=== PATIENT | female | born 1990 | race African-American/Black ===

== ENCOUNTER 2024-01-03 08:46 | Emergency (ER) | payer OTHER, MEDICARE, SELFPAY ==
[2024-01-03 08:48] VITALS: BP 140/84
--- NOTE | 2024-01-03 09:42 | ED.GENMED ---
History of Present Illness
General
Chief Complaint: Musculo-Skeletal Complaint
Source: patient
Exam Limitations: none
Time Seen by Provider: 01/03/24 09:23
Nursing documentation reviewed up to this point in time: agreed with
Travel History
Have you had any contact with someone who has COVID-19?: No
Do you have any symptoms of coronavirus? Fever > 100 degrees, chills, cough, shortness of breath, sore throat, loss of taste or smell, muscle aches, or headache?: No
History of Present Illness
History of Present Illness:
Patient is a 33-year-old female who presents to the ER complaining of right foot pain. She reports she fell a couple days ago and did not have pain initially after but has had pain since yesterday. She complains of pain across the top of her foot.
She denies any swelling. She denies any calf pain or swelling. She does have MS and walks with a cane normally and reports this is her good leg and because of this she is having difficulty walking.
Past History
Past History
ED Past Medical History: NIDDM, Psychiatric (Generalized anxiety disorder, PTSD, Depression,. Schizophrenia, ) and Other (Vertigo, multiple sclerosis, probable relapsing remitting type with lesions in brain, at C7, and conus medullaris ,Chronic abd
pain, anemia, 'Lymphanoma')
ED Past Surgical History: Appendectomy and Gynecological (Fallopian tube removed)
Social History
Tobacco: Former smoker
Alcohol: None
Drug: Other (Heroin)
Personal:
Living: with family (with Mother)
Employment: Not employed
Family History
Family History: Other (uncle with MS)
Review of Systems
Review of Systems
Allergies reviewed?: Yes
All Other Systems: ROS reviewed and negative except as documented in HPI and ROS
Constitutional: Reports no symptoms; Denies fever, fatigue or chills
Respiratory: Reports no symptoms
Cardiac: Reports no symptoms
ABD/GI: Reports no symptoms
Musculoskeletal: Reports other (right foot pain )
Skin: Reports no symptoms
Neurological: Reports no symptoms
Psychiatric: Reports no symptoms
Phy Exam
General Physical Exam
General Presentation: no apparent distress
General age: appears stated age
General Skin: warm and dry
General Habitus: normal
General Mental: alert
General Hydration: appears well hydrated
Neurological Exam
Neurological Exam: alert and oriented x3
Musculoskeletal Exam
Musculoskeletal Exam: other (right lower extremity strong pulses no obvious swelling or erythema mild nonspecific tenderness across the dorsal foot no bony ankle tenderness no proximal fifth metatarsal tenderness no calf tenderness or swelling)
Skin Exam
Skin Exam: normal color and warm/dry
Psychiatric Exam
Psychiatric Exam: normal mood/affect
Course
Orders/Labs/Results
Orders:
Orders
01/03/24 08:50
CR Foot - Right Min 3 Views Urgent
Comment:
Reason For Exam: pain
01/03/24 09:40
Cast Shoe Right-Treatment ONCE
Vital Signs
Initial and Last Documented VS:
Initial Vital Signs
Temp Pulse Resp BP Pulse Ox
98.2 F 94 20 140/84 100
01/03/24 08:48 01/03/24 08:48 01/03/24 08:48 01/03/24 08:48 01/03/24 08:48
Last Documented Vital Signs
Temp Pulse Resp BP Pulse Ox
98.2 F 94 20 140/84 100
01/03/24 08:48 01/03/24 08:48 01/03/24 08:48 01/03/24 08:48 01/03/24 08:48
MDM/Problems Addressed
Differential Diagnosis Includes:
Not limited to fracture sprain /strain
MDM/Problems Addressed:
No obvious fracture possible sprain strain injury. No calf tenderness or swelling no evidence of infection.
Will DC with cast shoe with elevation ibuprofen and close outpatient follow-up with either podiatry or orthopedics.
Chronic conditions affecting care:
MS : pt walks with a cane
*Radiology
Radiology exam reviewed: radiology read reviewed
*Pulse Oximetry
Patient hypoxic: no
*Critical Care Note
Total Time (30-74mins, 75-104mins- exclusive of procedures): Not Applicable
ED Attending Note
-
Portions of this chart may have been created with voice recognition software.� Occasional wrong word or��sound alike� substitutions may have occurred due to the inherent limitations of voice recognition software.
Discharge Plan
Departure
Patient Disposition: Home (Routine Discharge)
Date of Disposition: 01/03/24
Time of Disposition: 10:15
Patient with high blood pressure during this ER visit?: Yes
Condition: Fair
Covid-19: Not Applicable
Discharge Problem:
foot pain
Instructions: Muscle and Bone Pain (DC), Ibuprofen
Prescriptions:
No Action
clonazepam 0.5 MG tablet
0.5 mg PO BID
Patient Comments:
09/03/2022: last filled 08/17/22, 60 tabs for 30 days from [facility]
zolpidem 10 MG tablet
10 mg PO HS PRN (Reason: sleep)
Patient Comments:
09/03/2022: last filled 08/17/22, 30 tabs for 30 days from [facility]
acetaminophen-codeine 300-30 mg tablet
1 tab PO BID PRN (Reason: moderate pain)
Patient Comments:
09/03/2022: last filled 09/02/22, 90 tabs for 30 days from [facility]
baclofen 20 mg tablet
20 mg PO TID
gabapentin 800 mg tablet
800 mg PO TID
mirtazapine 45 mg tablet
45 mg PO HS
perphenazine 16 mg tablet
16 mg PO HS
Kesimpta Pen 20 mg/0.4 mL pen injector
20 mg SC TH
Patient Comments:
09/03/2022: Taking weekly for 3 weeks, then monthly
meclizine 25 mg tablet
25 mg PO Q8H PRN (Reason: dizziness)
ondansetron 4 mg Tablet,Disintegrating
4 mg PO Q8H PRN (Reason: nausea/vomiting)
cholecalciferol (vitamin D3) 125 mcg (5,000 unit) capsule
125 mcg PO DAILY
duloxetine 60 mg Capsule,Delayed Release(Dr/Ec)
60 mg PO DAILY Qty: 30 0RF
Rx Instructions:
Increased dose
pregabalin 75 mg Capsule
150 mg PO TID Qty: 60 0RF
rizatriptan 10 mg Tablet,Disintegrating
10 mg PO ONCE PRN (Reason: headache) Qty: 10 0RF
prednisone 10 mg tablet
10 mg PO DIRECTED Qty: 39 0RF
Rx Instructions:
60mg for 3 days, then 40mg daily for 3 days, Then 20mg for 3 days. 10mg for 3 days.
Referrals:
Jarred Kohli DO [Active] -
Jeanne Chen DPM [Specified Professional Personl] -
Lea Algere MD [Family Provider] -
Activity Restrictions/Additional Instructions:
Wear cast shoe for support . Keep elevated as much as possible
Follow-up with either orthopedics or podiatry in the next several days for reevaluation. You may take ibuprofen every 8 hours with food for discomfort return if any worsening of symptoms
Interventions
Interventions:
*Risk Screen - Suicide Last Done: 01/03/24 08:48
*General Assessment Last Done: 01/03/24 08:48
*Neglect/Abuse Screening Last Done: 01/03/24 08:48
*Nursing Disposition Last Done: 01/03/24 10:37
ED-Musculoskeletal Assessment Last Done: 01/03/24 09:27
Discharge Date and Time
Discharge Date/Time: 01/03/24 10:37
Print Language: IRISH
== END 2024-01-03 10:37 | disposition home or self-care (01) ==
LOC: EMR 08:46
PROVIDERS: EMERGENCY PHYSICIAN Emergency Medicine; FAMILY PHYSICIAN Family Medicine
DX: M79.671 Pain in right foot (principal); W19.XXXA Unspecified fall, initial encounter; R03.0 Elevated blood-pressure reading, without diagnosis of hypertension; E11.9 Type 2 diabetes mellitus without complications; F41.1 Generalized anxiety disorder; F43.10 Post-traumatic stress disorder, unspecified; R26.89 Other abnormalities of gait and mobility; R10.9 Unspecified abdominal pain; G35 Multiple sclerosis; F32.A Depression, unspecified; F20.9 Schizophrenia, unspecified; D64.9 Anemia, unspecified; G89.29 Other chronic pain; Z87.891 Personal history of nicotine dependence
CPT/HCPCS: 99283; 73630

== ENCOUNTER 2024-08-15 19:03 | Inpatient (IN) | payer OTHER, SELFPAY ==
[2024-08-15 13:08] VITALS: BP 200/94
--- NOTE | 2024-08-15 13:11 | ED.GENMED ---
ED Provider Triage
<Sloan Ford PA-C - Last Filed: 08/15/24 13:12>
-
Patient seen by provider in Triage?: Seen in Triage
34-year-old female with history of MS presents with onset of dizziness and pina vision and cloudy vision since yesterday she also notes shooting pain down her leg. She received her last MS treatment a week ago.
Seen briefly in triage with stable vital signs. Workup initiated with labs EKG CT head ordered.
Patient seen by provider at triage. Will benefit from further evaluation
History of Present Illness
<Sloan Ford PA-C - Last Filed: 08/15/24 13:12>
General
Chief Complaint: Dizziness
Time Seen by Provider: 08/15/24 16:33
<Mir José DO - Last Filed: 08/15/24 18:23>
General
Source: patient
Exam Limitations: none
Nursing documentation reviewed up to this point in time: agreed with
History of Present Illness
History of Present Illness:
34-year-old female history of MS, followed by an MS specialist at [place] last treatment was a week ago, had a busy day yesterday with the holidays, developed some visual loss seeing pina no visual issues with her MS previously, she has some pain
in her back, not getting much relief from baclofen
Past History
<Sloan Ford PA-C - Last Filed: 08/15/24 13:12>
Past History
ED Past Medical History: NIDDM, Psychiatric (Generalized anxiety disorder, PTSD, Depression,. Schizophrenia, ) and Other (Vertigo, multiple sclerosis, probable relapsing remitting type with lesions in brain, at C7, and conus medullaris ,Chronic abd
pain, anemia, 'Lymphanoma')
ED Past Surgical History: Appendectomy and Gynecological (Fallopian tube removed)
Social History
Tobacco: Former smoker
Alcohol: None
Drug: Other (Heroin)
Personal:
Living: with family (with Mother)
Employment: Not employed
Family History
Family History: Other (uncle with MS)
Review of Systems
<Mir José DO - Last Filed: 08/15/24 18:23>
Review of Systems
All Other Systems: Not applicable
Constitutional: Denies fever
Respiratory: Reports no symptoms
Cardiac: Reports no symptoms
ABD/GI: Reports no symptoms
Musculoskeletal: Reports muscle stiffness
Neurological: Reports weakness and other (Visual changes); Denies dizzy or headache
Phy Exam
<Mir José DO - Last Filed: 08/15/24 18:23>
Physical Exam
Physical Exam:
Physical Exam
General: no apparent distress, not acutely ill
Neck: No jaundice
Heart: s1/s2 regular rate and rhythm, no murmur. equal radial pulses.
Lungs: no acute respiratory distress. clear bilaterally
Neuro: alert and oriented. no focal neurological deficits
Skin: no rash
Psychiatric:cooperative
Extremities: no edema.
Course
<Sloan Ford PA-C - Last Filed: 08/15/24 13:12>
Orders/Labs/Results
Orders:
Orders
08/15/24 13:10
CT Head W/o Iv Contrast Urgent
Comment:
Reason For Exam: dizziness, vision change
Test Result ONCE
08/15/24 13:11
Electrocardiogram (*1) Urgent
Reason for Study: Vertigo / Dizzy
EKG- Treatment ONCE
08/15/24 16:16
C-Reactive Protein Urgent
Comment: ADD ON
Complete Blood Count/With Diff Urgent
Comprehensive Metabolic Panel Urgent
Erythrocyte Sed Rate Urgent
Comment: ADD ON
HCG, Serum Qualitative Screen Urgent
Urinalysis Reflex To Culture Urgent
Date Specimen was Collected: 08/15/24
Time Specimen was Collected: 16:09
08/15/24 17:03
Add On- LAB Urgent
Tests Added?: esr/crp
08/15/24 17:16
Visual Acuity- Treatment ONCE
08/15/24 17:29
MethylPREDNISolone. [Solu-Medrol] 1,000 mg 0.9% Sodium Chloride 250 ml [Nss] 250 ml IV NOW
Abnormal Lab Results
08/15/24
16:16
RBC 4.19 L 10^6/uL
(4.20-5.40)
Hgb 11.0 L g/dL
(12.0-16.0)
Hct 35.2 L %
(37.0-47.0)
MCH 26.3 L pg
(27.0-31.0)
MCHC 31.3 L g/dL
(33.0-37.0)
RDW 15.6 H %
(11.5-14.5)
MPV 11.7 H fL
(7.4-10.4)
Absolute Neuts (auto) 6.9 H 10^3/uL
(1.4-6.5)
Lymphocytes % 20.2 L %
(20.5-51.1)
ESR 37 H mm/hour
(0-20)
Glucose 102 H mg/dl
(70-99)
C-Reactive Protein 30.50 H mg/L
(0.0-10.00)
08/15/24 16:16
08/15/24 16:16
Vital Signs
Initial and Last Documented VS:
Initial Vital Signs
Temp Pulse Resp BP Pulse Ox
98.1 F 72 18 200/94 100
08/15/24 13:08 08/15/24 13:08 08/15/24 13:08 08/15/24 13:08 08/15/24 13:08
Last Documented Vital Signs
Temp Pulse Resp BP Pulse Ox
98.1 F 81 20 120/82 100
08/15/24 13:08 08/15/24 16:23 08/15/24 16:23 08/15/24 16:23 08/15/24 16:23
<Mir José, DO - Last Filed: 08/15/24 18:23>
Orders/Labs/Results
Orders:
Orders
08/15/24 13:10
CT Head W/o Iv Contrast Urgent
Comment:
Reason For Exam: dizziness, vision change
Test Result ONCE
08/15/24 13:11
Electrocardiogram (*1) Urgent
Reason for Study: Vertigo / Dizzy
EKG- Treatment ONCE
08/15/24 16:16
C-Reactive Protein Urgent
Comment: ADD ON
Complete Blood Count/With Diff Urgent
Comprehensive Metabolic Panel Urgent
Erythrocyte Sed Rate Urgent
Comment: ADD ON
HCG, Serum Qualitative Screen Urgent
Urinalysis Reflex To Culture Urgent
Date Specimen was Collected: 08/15/24
Time Specimen was Collected: 16:09
08/15/24 17:03
Add On- LAB Urgent
Tests Added?: esr/crp
08/15/24 17:16
Visual Acuity- Treatment ONCE
08/15/24 17:29
MethylPREDNISolone. [Solu-Medrol] 1,000 mg 0.9% Sodium Chloride 250 ml [Nss] 250 ml IV NOW
Abnormal Lab Results
08/15/24
16:16
RBC 4.19 L 10^6/uL
(4.20-5.40)
Hgb 11.0 L g/dL
(12.0-16.0)
Hct 35.2 L %
(37.0-47.0)
MCH 26.3 L pg
(27.0-31.0)
MCHC 31.3 L g/dL
(33.0-37.0)
RDW 15.6 H %
(11.5-14.5)
MPV 11.7 H fL
(7.4-10.4)
Absolute Neuts (auto) 6.9 H 10^3/uL
(1.4-6.5)
Lymphocytes % 20.2 L %
(20.5-51.1)
ESR 37 H mm/hour
(0-20)
Glucose 102 H mg/dl
(70-99)
C-Reactive Protein 30.50 H mg/L
(0.0-10.00)
08/15/24 16:16
08/15/24 16:16
Vital Signs
Initial and Last Documented VS:
Initial Vital Signs
Temp Pulse Resp BP Pulse Ox
98.1 F 72 18 200/94 100
08/15/24 13:08 08/15/24 13:08 08/15/24 13:08 08/15/24 13:08 08/15/24 13:08
Last Documented Vital Signs
Temp Pulse Resp BP Pulse Ox
98.1 F 81 20 120/82 100
08/15/24 13:08 08/15/24 16:23 08/15/24 16:23 08/15/24 16:23 08/15/24 16:23
Earllt;Mir José, DO - Last Filed: 08/15/24 18:23>
MDM/Problems Addressed
Differential Diagnosis Includes:
MS flare or optic neuritis atypical migraine malingering psychosomatic
MDM/Problems Addressed:
Visual changes
Chronic conditions affecting care: Neurological disorder and Psychiatric illness
Acute Exacerbation and/or Progression of Chronic Illness: Neurological disorder and Psychiatric illness
<Mir José DO - Last Filed: 08/15/24 18:23>
*Radiology
Radiology exam reviewed: radiology read reviewed
*Pulse Oximetry
Patient hypoxic: no
*Crusher Operator Interpretation
Rate: normal
Interpretation: normal
Heart Rate: 78
Rhythm: sinus
*Critical Care Note
Total Time (30-74mins, 75-104mins- exclusive of procedures): Not Applicable
<Mir José DO - Last Filed: 08/15/24 18:23>
Update Note
Update Note:
Update up-to-date reviewed, unclear if this represents optic neuritis flare? Or others? does have MS also has mental illness, at this point I think it is best to bring her in the hospital consideration for specialty consultation
Reviewed with neurology and ophthalmology will ophthalmology will see her in the ER
ED Attending Note
<Sloan Ford PA-C - Last Filed: 08/15/24 13:12>
-
Portions of this chart may have been created with voice recognition software.� Occasional wrong word or��sound alike� substitutions may have occurred due to the inherent limitations of voice recognition software.
Discharge Plan
Departure
Admit to: Med/Surg
Presentation/result/management discussed w/ accepting MD/DO: Hospitalist
Patient with high blood pressure during this ER visit?: Yes
Condition: Fair
Discharge Problem:
Multiple sclerosis
Prescriptions:
No Action
clonazepam 0.5 MG tablet
0.5 mg PO TID
Patient Comments:
09/03/2022: last filled 08/17/22, 60 tabs for 30 days from [facility]
zolpidem 10 MG tablet
10 mg PO HS
Patient Comments:
08/15/24: last filled 08/15/24 for 30 tablets over 30 days
mirtazapine 45 mg tablet
45 mg PO HS
perphenazine 16 mg tablet
16 mg PO HS
Kesimpta Pen 20 mg/0.4 mL pen injector
20 mg SC QMONTH
meclizine 25 mg tablet
25 mg PO [id number] PRN (Reason: dizziness)
ondansetron 4 mg Tablet,Disintegrating
4 mg PO Q8HPRN PRN (Reason: nausea/vomiting)
cholecalciferol (vitamin D3) 125 mcg (5,000 unit) capsule
125 mcg PO DAILY
prazosin 5 mg Capsule
5 mg PO HS
hydroxyzine pamoate 25 mg Capsule
25 mg PO BIDPRN PRN (Reason: anxiety)
duloxetine 30 mg Capsule,Delayed Release(Dr/Ec)
30 mg PO DAILY
tizanidine 2 mg Capsule
2 mg PO Q8HPRN PRN (Reason: muscle spasms)
rizatriptan 10 mg tablet,disintegrating
10 mg PO DAILYPRN PRN (Reason: headache)
pregabalin 75 mg capsule
75 mg PO TID
Patient Comments:
08/15/24: last filled 05/22/24 for 90 tabs over 30 days
Referrals:
Lea Alegre MD [Family Provider] -
Interventions
Interventions:
*Risk Screen - Suicide Last Done: 08/15/24 13:08
*General Assessment Last Done: 08/15/24 13:08
*Neglect/Abuse Screening Last Done: 08/15/24 13:08
*ED COVID-19 Vaccine History Last Done: 08/15/24 13:08
ED- Neurological Assessment Last Done: 08/15/24 16:25
ED- Cardiac Assessment Last Done: 08/15/24 16:25
ED Swallowing Screen Last Done: 08/15/24 17:41
Discharge Date and Time
Print Language: FRISIAN
[2024-08-15 16:10] VITALS: BMI 46.6
[2024-08-15 16:21] VITALS: BP 120/82
[2024-08-15 16:23] VITALS: BP 120/82
[2024-08-15 16:27] LABS: % Basophils 0.6 % (0-2); % Eosinophils 1.8 % (0-6); % Immature Granulocytes 0.3 % (0-0.5); % Lymphocytes 20.2 % (20.5-51.1); % Monocytes 5.7 % (1.7-9.3); % Neutrophils 71.4 % (42.2-75.2); Absolute Basophils 0.1 10^3/uL (0-0.2); Absolute Eosinophils 0.2 10^3/uL (0-0.7); Absolute Monocytes 0.6 10^3/uL (0.1-0.6); Absolute Neutrophils 6.9 10^3/uL (1.4-6.5); Hematocrit 35.2 % (37.0-47.0); Mean Corp Hgb Conc. 31.3 g/dL (33.0-37.0); Mean Corpuscular Hgb 26.3 pg (27.0-31.0); Mean Platelet Volume 11.7 fL (7.4-10.4); Nucleated Red Blood Cells % 0 %; Platelet Count 358 10^3/uL (130-400); Red Blood Cell Count 4.19 10^6/uL (4.20-5.40); Red Cell Dist. Width 15.6 % (11.5-14.5); White Blood Cell Count 9.7 10^3/uL (4.8-10.8)
[2024-08-15 16:38] LABS: Urine Albumin Negative (Neg - Trace); Urine Bilirubin Negative (Negative); Urine Character Very Cloudy (Clear); Urine Color Yellow; Urine Glucose Negative (Negative); Urine Ketone Negative (Negative); Urine Leukocyte Negative (Negative); Urine Nitrite Negative (Negative); Urine Occult Blood Negative (Negative); Urine Urobilinogen Negative (Neg - 1+)
[2024-08-15 16:43] LABS: HCG, Serum Qualitative Screen Negative
[2024-08-15 16:46] LABS: ALT (SGPT) 27 U/L (0-35); AST (SGOT) 33 U/L (14-36); Albumin 4.5 g/dl (3.5-5.0); Alkaline Phosphatase 112 U/L (38-126); Blood Urea Nitrogen 10 mg/dl (7-17); Carbon Dioxide 25 mmol/L (22-30); Chloride 104 mmol/L (98-107); Estimated Creatinine Clearance > 125 ml/min; Glucose 102 mg/dl (70-99); Potassium 4.2 mmol/L (3.5-5.1); Sodium 138 mmol/L (135-145); Total Bilirubin 0.2 mg/dl (0.2-1.3); Total Protein 7.4 g/dl (6.3-8.2); eGFR > 60.00
[2024-08-15 17:21] LABS: Erythrocyte Sed Rate 37 mm/hour (0-20)
[2024-08-15] MEDS: SOLU-MEDROL 258 MG IV (18:04)
--- NOTE | 2024-08-15 18:21 | HPS.HSE ---
Family Physician
-
Family Physician: Lea Alegre
Chief Complaint
-
blurry vision
History of Present Illness
34-year-old female with history of MS, chronic pain, posttraumatic stress disorder presents with onset of dizziness and pina vision and cloudy vision since yesterday. stated its feels like the room is spinning. patient stated worsening of her
chronic back pain shooting to her bilateral lower extremities. Patient stated some headache. Patient denied any fever, chills, runny nose, congestion, cough. Patient denied chest pain or short of breath. Patient denied abdominal pain, nausea,
vomiting or diarrhea. Patient denied dysuria,hematuria.
Patient received a dose of Solu-Medrol in ER. Admitting for further management
Medical History
Past Medical History
Past Medical History: Reports Other
Additional Past Medical History:
Multiple sclerosis
Lymphedema
Posttraumatic stress stress disorder
Depression
Type anxiety
Past Surgical History: Reports Other
Additional Past Surgical History:
Appendectomy
Fallopian tube removed
Social History
Tobacco: Vaping (Daily)
Alcohol: None
Drug: None
Family History
Family History: Not pertinent
Allergies / Home Medications
Allergies reflects when Allergies were last updated in [facility].
Home Medications with original date entered in [facility]
Allergy/Medication List:
Allergies
Allergy/AdvReac Type Severity Reaction Status Date / Time
No Known Allergies Allergy Verified 08/15/24 13:12
Home Medications
clonazepam 0.5 mg tablet 0.5 mg PO TID Mental Health/Anxiety 10/08/20
zolpidem 10 mg tablet 10 mg PO HS sleep 10/08/20
cholecalciferol (vitamin D3) 125 mcg (5,000 unit) capsule 125 mcg PO DAILY Supplement 09/03/22
meclizine 25 mg tablet 25 mg PO [id number] PRN dizziness 09/03/22
mirtazapine 45 mg tablet 45 mg PO HS Mental Health/Anxiety 09/03/22
ofatumumab 20 mg/0.4 mL subcutaneous pen injector (Kesimpta Pen) 20 mg SC QMONTH Cancer 09/03/22
ondansetron 4 mg disintegrating tablet 4 mg PO Q8HPRN PRN nausea/vomiting 09/03/22
perphenazine 16 mg tablet 16 mg PO HS Sleep 09/03/22
duloxetine 30 mg capsule,delayed release 30 mg PO DAILY 08/15/24
hydroxyzine pamoate 25 mg capsule 25 mg PO BIDPRN PRN anxiety 08/15/24
prazosin 5 mg capsule 5 mg PO HS 08/15/24
pregabalin 75 mg capsule 75 mg PO TID Pain 08/15/24
rizatriptan 10 mg disintegrating tablet 10 mg PO DAILYPRN PRN headache 08/15/24
tizanidine 2 mg capsule 2 mg PO Q8HPRN PRN muscle spasms 08/15/24
Review of Systems
-
Constitutional: Reports No Symptoms
EENT: Reports Other (Blurry or cloudy vision)
Respiratory: Reports No Symptoms
Cardiac: Reports No Symptoms
Abdomen/GI: Reports No Symptoms
: Reports No Symptoms
Musculoskeletal: Reports No Symptoms
Skin: Reports No Symptoms
Neurological: Reports Dizzy and Headache
Endocrine: Reports No Symptoms
Hematologic/Lymphatic: Reports No Symptoms
Psych: Reports No Symptoms
Physical Exam
Vital Signs
Vital Signs
Temp Pulse Resp BP Pulse Ox
98.1 F 81 20 120/82 100
08/15/24 13:08 08/15/24 16:23 08/15/24 16:23 08/15/24 16:23 08/15/24 16:23
Physical Exam
General: Well Developed, Well Nourished and No Apparent Distress
HEENT: NormoCephalic, Moist mucous membranes and Atraumatic
Respiratory: Clear
Cardiac: S1/S2 and Regular Rhythm; No Murmur or Rub
GI: Soft, Non Tender, Non Distended and Normal Bowel Sounds; No Organomegaly
Rectal: Deferred by Provider
Musculoskeletal: No Clubbing, No Cyanosis and No Edema
Skin: No Rash
Neuro: AO x 3 and Nonfocal/grossly intact
Psych: Calm
Laboratory Results
-
08/15/24 16:16
08/15/24 16:16
Laboratory Results
Total Bilirubin 0.2 mg/dl (0.2-1.3) 08/15/24 16:16
AST 33 U/L (14-36) 08/15/24 16:16
ALT 27 U/L (0-35) 08/15/24 16:16
Alkaline Phosphatase 112 U/L (38-126) 08/15/24 16:16
Data Reviewed
-
CT Scan: Report Reviewed by me
Lab Data: Labs Reviewed by me
Impression/Plan
-
# Blurry vision, dizziness/vertigo likely optical neuritis
# History of MS
-Head CT with no acute finding
-IV Solu-Medrol continued
-Ophthalmology and neurology consulted
# Anemia of chronic disease
-Hemoglobin stable at 11.0
-No active bleeding
-Continue to monitor
#PTSD
#Anxiety disorder/depression
-Clonazepam, duloxetine, hydroxyzine pamoate, Remeron, prazosin continued
# Chronic back pain radiating to her lower extremities
-Pregabalin, tizanidine continued
-tramadol as needed for pain
Morbid obesity due to excess calories
Full code
scds
--- NOTE | 2024-08-15 18:47 | W.PN.UPDATE ---
Update Note
Progress Note Update
This is an addendum to the H&P written by Peace Walker on 08/15/2024. Patient seen and examined independently with CASCADE OPERATOR.
34-year-old female past medical history of multiple sclerosis on Kesimpa infusion at [facility] for past year, chronic pain, PTSD, anxiety, depression, lymphedema, presenting with dizziness, vertigo, headache and neck pain, bilateral blurry vision,
bilateral back pain shooting down her legs, starting yesterday.
Patient also complaining of new bruising on her legs. She does have lymphedema.
CRP elevated at 30. CT head shows no acute abnormality.
Concern for optic neuritis and multiple sclerosis flare. Ophthalmology consulted and to evaluate patient soon. Neurology consulted. 1000 mg methylprednisolone given, continue daily. Back pain shooting down the legs is chronic and was thought to
be secondary to MS. She had recent MRI 2 months ago but does not know the result.
Tramadol as needed for back pain.
[2024-08-15 19:17] VITALS: BP 128/74
[2024-08-15] MEDS: LIORESAL 10 MG PO (19:18)
[2024-08-15] MEDS: DILAUDID 1 MG IV (19:18)
[2024-08-15] MEDS: MYDRIACYL 1 DROP OPHTH (19:47)
[2024-08-15 20:57] VITALS: BMI 45.2
[2024-08-15 20:58] VITALS: BP 168/95
[2024-08-15] MEDS: TRILAFON 16 MG PO (22:51)
[2024-08-15] MEDS: KLONOPIN 0.5 MG PO (22:51)
[2024-08-15] MEDS: MINIPRESS 5 MG PO (22:51)
[2024-08-15] MEDS: REMERON 45 MG PO (22:51)
[2024-08-15] MEDS: LYRICA 75 MG PO (22:54)
[2024-08-15] MEDS: AMBIEN 10 MG PO (22:55)
[2024-08-15 23:00] VITALS: BP 152/86
[2024-08-15] MEDS: DILAUDID 0.5 MG IV (23:09)
[2024-08-16 07:30] VITALS: BP 110/61
--- NOTE | 2024-08-16 09:01 | W.PN.HOSP.TC ---
Today's Communication/Plan
-
Patient to undergo MRI today. Will await results. Continue supportive therapy.
Assessment / Plan
Assessment / Plan
Assessment:
34 year old female with a past medical history of multiple sclerosis (on Kesimpta infusion at [facility] for the past year), chronic pain, PTSD, anxiety and depression presented with dizziness, weakness, vertigo, headache, bilateral blurry vision,
and bilateral back pain which all started yesterday. Currently she says that she is feeling better and that her vision is improving.
#Possible Optic Neuritis secondary to Multiple Sclerosis Flare
-Head CT showed: No acute intracranial abnormality
-IV Solu-Medrol continued
-On Kesimpta therapy from [place]
-Ophthalmology and neurology consulted, input appreciated
-Ordered Brain MRI w/ and w/o IV contrast with special attention to the orbit. Awaiting results
-Inflammatory markers increased: CRP 30.50, ESR 37
#Chronic Anemia
-Hemoglobin stable at 11.0
-No current active bleed
-Continue to monitor
#PTSD/Anxiety disorder/depression
-Continue home medications of Clonazepam, duloxetine, hydroxyzine pamoate, Remeron, prazosin
#Dizziness
-Meclinizine PRN
# Chronic back pain radiating to her lower extremities
-Pregabalin, tizanidine continued
-tramadol as needed for pain
Morbid obesity due to excess calories
Full code
DVT Prophylaxis: SCDS
Anticipated Discharge: Within 24 hours
Subjective/Interval History
-
Date of Service: August 16, 2024
Patient was very somnolent and unable to provide much history. She was very tired but said that she did notice some improvement in her vision as compared to before.
Objective Data
-
Vital Signs:
Vital Signs
Temp Pulse Resp BP Pulse Ox
98.0 F 68 20 110/61 97
08/16/24 07:30 08/16/24 07:30 08/16/24 07:30 08/16/24 07:30 08/16/24 07:30
I&O
08/15/24 08/16/24 08/17/24
06:59 06:59 06:59
Intake Total 960 / 960
Balance 960 / 960
Review of Systems
-
History Source: Patient
Constitutional: Reports Fatigue and Weakness
EENT: Reports Blurry Vision and Decreased Vision
Respiratory: Denies Cough, Trouble Breathing or Wheezing
Cardiac: Denies Chest Pain, Diaphoresis or Palpitations
Abdomen/GI: Denies Abdominal Pain, Nausea or Vomiting
Musculoskeletal: Denies Muscle Weakness
Skin: Reports No Symptoms
Neuro: Reports Dizzy and Headache
Hematologic / Lymphatic: Reports No Symptoms
Allergy / Immunology: Reports No Symptoms
Physical Exam
-
General: Well Developed, Well Nourished and No Apparent Distress
HEENT: Normocephalic, Atraumatic and Moist Mucous Membranes
Respiratory: Clear to Auscultation and Non Labored Respirations
Cardiac: Regular Rhythm and S1/S2
GI: Soft, Nontender and Nondistended
Musculoskeletal: No Clubbing and No Cyanosis
Skin: Warm
Neuro: Awake, Alert, Oriented and AO x 3
Psych: Calm
Data Reviewed
-
CT Scan: Report Reviewed by me, Discussed with Physician, Discussed with Nurse and Discussed with Patient
Labs: Labs Reviewed by me, Discussed with Physician, Discussed with Nurse and Discussed with Patient
--- NOTE | 2024-08-16 09:01 | CON.NEURO4 ---
Addendum entered and electronically signed by Fantasma Sadler MD 08/16/24 11:43:
Studies reviewed.
I have personally examined the patient. I reviewed and agree with the SPOOL SALVAGER's Note.
My addenda:
Lethargic with eye closure after 3 seconds of interaction, interactive. No acute distress.
Speech mostly intact with some slurring at the end of words.
Funduscopic examination unremarkable bilaterally
Follows 2-step requests w/ difficulty. No tremor.
Extra-ocular movements grossly intact.
Facial movements full and symmetric. Hearing intact to normal conversational volume.
Normal UE movements bilaterally.
Neck: full ROM.
Chest: no dyspnea
Heart: no JVD
Ext: (-) Clubbing, (-) Cyanosis, (-) Edema
IMPRESSIONS/RECOMMENDATIONS:
Abrupt onset of visual change. Appreciate ophthalmologic evaluation which failed to demonstrate clear evidence of optic neuritis.
My review and the official review of the MRI of brain performed without contrast due to the patient's intolerance to the test, fails to demonstrate obvious optic neuritis.
The possibility of a toxic metabolic encephalopathy producing symptoms is most likely at this time
Would not continue initially suggested methylprednisolone as there is no evidence of an enhancing lesion either in the optic nerves or intraparenchymally
Patient will need replacement of prior Ofatumumab due to significant side effects
Check blood work for potential metabolic abnormalities producing symptoms as well as urinalysis
Obtain records
D/W patient
All questions answered.
Will continue to follow as needed.
Original Note:
Consultation - Neurology 4
-
CONSULTING PHYSICIAN: Dr. Fantasma Sadler
REFERRING PHYSICIAN: ZULEYMA Griffiths
DICTATED BY: ZULEYMA Lance
DATE/TIME OF REQUEST: 08/15/2024
DATE/TIME OF CONSULTATION: 08/16/2024
Reason for Consultation: vision changes, hx of MS
History of Present Illness:
This is a 37 year old right handed female with a past medical history of MS diagnosis 2020, chronic pain, posttraumatic stress disorder, anxiety, depression and vertigo who has presented to the hospital with acute onset of vision changes
08/14/2024. She reports she started to notice visual deficits about 6 pm. She does admit to significant fatigue. She was up all night [place] ever preparing for the day. She described her vision as pina and was so poor she was having difficulty
making out faces. She denied any double vision. She denied any additional flashing lights or floaters. She denied any eye pain. She denied any associated headache. She has not had vision issues in the past. She did follow up with [facility] this
past summer per recommendation of her Neurologist Dr. Boone, who she sees for MS. She has been taking Kesimpta. She denies any adverse side effects or missed doses. She has chronic back pain and follows up with pain management from [facility] at the
[place], and had a recent injection and is due back for follow-up appointment. She denies any changes in gait, new weakness or trouble with coordination. She denied any speech changes. She denies any new numbness or tingling.
She does have a history of migraines, but has not had a recurrence in sometime.
HPI was obtained from patient though limited d/t patients fatigue, falling asleep between questioning and review of the EMR.
Of note she was seen by our practice as an inpatient in 2020 and 2022
Past Medical History: Multiple sclerosis, chronic pain, post-traumatic stress disorder, anxiety, depression
Surgical History: Appendectomy, fallopian tube removal
Family History: Patient's uncle with history of MS as well as 3 other cousins.
Social History: She currently stays at home with her children. She does not use any illicit drugs. She does vape. She denies any alcohol use.
Allergies: no known drug allergies
Home Medications: see below
Review of Symptoms:
Patient denies any fever, headache, chest pain, shortness of breath, GI or symptoms.
Vital Signs: see below
Physical Exam:
The patient is afebrile, heart sounds S1 and S2 regular no dyspnea
Neurologic Examination:
The patient is awake, alert and oriented x 3, falls asleep between questioning. She is able to follow commands and answer questions appropriately. There is no aphasia or dysarthria. On cranial nerve assessment, pupils are 3 mm bilateral, round and
reactive to light and accommodation. Visual linares are full. Extraocular movements are intact. Facial sensations are intact and bilaterally symmetrical, there is no facial asymmetry. Hearing is intact bilaterally to normal conversation volume.
Tongue palate and uvula are midline. Sternocleidomastoid strengths are full bilaterally. Motor strengths are 5/5 bilateral upper and lower extremities on medical research [place] scale. There is no drift or involuntary movement noted. Deep tendon
reflexes are trace bilateral upper and lower extremities and Babinski is absent bilaterally. Sensations of pain, touch, temperature and vibration are intact and bilaterally symmetrical. There was no extinction noted on double simultaneous
stimulation. Coordination is intact by finger to nose bilaterally.
Lab Results: see below
Neuro Imaging: CT head (08/16/2024)
MRI brain-pending
Impression:
ROBINSON OLSEN is a 34 year old F With a history of multiple sclerosis who has presented to the hospital with Visual changes.
Differentials for the patient's presentation include:
1. Optic neuritis, new MS lesion
2. excessive fatigue
Recommendations:
-MRI of the brain with and without contrast-Pending report
-If new enhancing lesion noted on MRI brain will require imaging of cervical and thoracic spine
-Continue High-dose steroids until MRI results indicate no active lesions
-Appreciate ophthalmology consultation, follow-up with [facility]
-Continue Kesimpta
-obtain records from Dr. Aguirre office at [place]
-continue tizanidine and pregabalin
-Counseled on vaping
-Add on urine drug screen
-add in Vitamin D
-DVT prophylaxis
-Rest of medical management per primary care team
Discussed patient care with Patient, hospitalist, and neurologist Dr. Shafer.
Medication and Allergies
Home Medications
Home Medications
�Medication �Instructions �Recorded
clonazepam 0.5 mg tablet 0.5 mg PO TID Mental Health/Anxiety 10/08/20
zolpidem 10 mg tablet 10 mg PO HS sleep 10/08/20
cholecalciferol (vitamin D3) 125 125 mcg PO DAILY Supplement 09/03/22
mcg (5,000 unit) capsule
meclizine 25 mg tablet 25 mg PO [id number] PRN dizziness 09/03/22
mirtazapine 45 mg tablet 45 mg PO HS Mental Health/Anxiety 09/03/22
ofatumumab 20 mg/0.4 mL 20 mg SC QMONTH Cancer 09/03/22
subcutaneous pen injector
(Kesimpta Pen)
ondansetron 4 mg disintegrating 4 mg PO Q8HPRN PRN nausea/vomiting 09/03/22
tablet
perphenazine 16 mg tablet 16 mg PO HS Sleep 09/03/22
duloxetine 30 mg capsule,delayed 30 mg PO DAILY 08/15/24
release
hydroxyzine pamoate 25 mg capsule 25 mg PO BIDPRN PRN anxiety 08/15/24
prazosin 5 mg capsule 5 mg PO HS 08/15/24
pregabalin 75 mg capsule 75 mg PO TID Pain 08/15/24
rizatriptan 10 mg disintegrating 10 mg PO DAILYPRN PRN headache 08/15/24
tablet
tizanidine 2 mg capsule 2 mg PO Q8HPRN PRN muscle spasms 08/15/24
Allergies
Allergies
Allergy/AdvReac Type Severity Reaction Status Date / Time
No Known Allergies Allergy Verified 08/15/24 13:12
Vital Signs / Labs
-
Vital Signs and Labs:
Temp Pulse Resp BP Pulse Ox
98.0 F 68 20 110/61 97
08/16/24 07:30 08/16/24 07:30 08/16/24 07:30 08/16/24 07:30 08/16/24 07:30
08/15/24 16:16
08/15/24 16:16
08/15/24
16:16
RBC 4.19 L
Hgb 11.0 L
Hct 35.2 L
MCH 26.3 L
MCHC 31.3 L
RDW 15.6 H
MPV 11.7 H
Absolute Neuts (auto) 6.9 H
Lymphocytes % 20.2 L
ESR 37 H
Glucose 102 H
C-Reactive Protein 30.50 H
[2024-08-16] MEDS: CYMBALTA DELAYED RELEASE 30 MG PO (10:16)
[2024-08-16] MEDS: LYRICA 75 MG PO ×2 (10:17→16:48)
[2024-08-16] MEDS: KLONOPIN 0.5 MG PO ×2 (10:17→16:47)
--- NOTE | 2024-08-16 12:02 | CM ---
Addendum entered by Zuleyma Marcano 08/16/24 12:04:
CM received consult for Advance Directive-provided to patient/mother.
Original Note:
CM reviewed chart, patient seen bedside with mother, initial assessment completed. Patient resides with her spouse and son in a multiple story home, has a cane if needed. Patient denies VN or SNF, confirms PCP Lea Alegre, pharmacy [facility]
[place], confirmed prescription coverage. Patient denies insecurities at home. CM will continue to follow for all discharge planning needs.
Plan; home no needs likely.
[2024-08-16] MEDS: ULTRAM 50 MG PO (12:04)
[2024-08-16 12:18] LABS: Amphetamines Negative (Negative); Barbiturates Negative (Negative); Benzodiazepines Negative (Negative); Buprenorphine Negative (Negative); Cocaine Negative (Negative); Marijuana Positive (Negative); Methadone Negative (Negative); Methamphetamines Negative (Negative); Opiates Negative (Negative); Phencyclidine Negative (Negative); Tricyclic Antidepressants Negative (Negative)
[2024-08-16 12:26] LABS: Free T4 1.19 ng/dl (0.78-2.19); Vitamin D, 25-OH*** 22.5 ng/mL (30-80)
[2024-08-16 12:39] LABS: TSH 1.08 uIU/ml (0.47-4.68)
[2024-08-16 12:43] LABS: Ferritin 11.6 ng/ml (6.24-137)
[2024-08-16 13:14] LABS: Folate 5.9 ng/ml (2.76-20); Vitamin B12 795 pg/ml (239-931)
[2024-08-16 14:20] LABS: Alcohol None Detected
--- NOTE | 2024-08-16 14:49 | W.DCSUMMARY ---
Documented by User: Daquan Suazo MD, Resident 08/16/24 17:05
Discharge Summary
Discharge Data
Date of Admission: 08/15/24
Date of Discharge: 08/16/24
-
Pending Results: No
Hospital Course
Discharging Physician : Dr. Nahid cMleod, Dr. Daquan Suazo
Disposition : Home
Primary care physician : Dr. Lea Alegre
Principal Discharge diagnosis : Abrupt Visual Changes secondary to Multiple Sclerosis
Chronic Discharge diagnosis : Multiple Sclerosis, Chronic Anemia, PTSD, Anxiety, Depression, Dizziness, Chronic Back Pain, Morbid Obesity
Hospital Course :
34-year-old female with a history of multiple sclerosis, chronic back pain, anxiety, depression, PTSD, morbid obesity presents to [facility] on 08/15/2024 with recent history of dizziness blurry vision and feeling like the room is spinning.
She denies any fever, chills, chest pains, shortness of breath, abdominal pain, nausea, vomiting, or diarrhea. Patient's head CT showed no acute findings patient was started on IV steroids. Patient was admitted to the hospital with with concerns
that she was dealing with optic neuritis. Patient was evaluated by both ophthalmology and neurology. She was found to have no definitive signs of optic neuritis as she had no pain on eye movements and her vision was not profoundly decreased. Her
blood levels were checked for any toxic metabolites or electrolyte abnormalities but only thing that was found was that her vitamin D levels were low. Patient was taken off of steroids as there is no evidence of an enhancing lesion either in the
optic nerves or intraparenchymally and she was discharged home with instructions to follow-up with her neurologist as she continues to have these episodic symptoms of multiple sclerosis.
Important imaging findings :
CT Head W/o Iv Contrast
-No acute intracranial abnormality.
-No interval change
MR Brain Without Contrast (Was Ordered with and without contrast but done without contrast due to patient discomfort)
-Examination is limited by motion artifact as well as patient being unable to tolerate the entire examination.
-Focus of increased FLAIR signal within the medial right temporal lobe, stable from previous MRI examination, and most likely a stable demyelinating plaque.
-Focus of increased FLAIR signal within the white matter of the right parietal lobe, stable, and could represent a small demyelinating plaque, although nonspecific.
-No evidence for a new focal area of demyelination.
-No gross abnormality of the orbits.
Discharge Plan
-
Patient Disposition: Home (Routine Discharge)
Discharge Diagnosis/Procedures: Abrupt Visual Change secondary to Underlying Multiple Sclerosis
Diet: As tolerated and Regular
Activity: As tolerated
Driving Restrictions: As prior to admission
Bathing Restrictions: None
Referrals:
Lea Alegre MD [Family Provider] -
Additional Discharge Medication Instructions: Follow up with Neurologist due to persistent MS symptoms
Take Vitamin D 125mcg (5,000 units) supplement daily
Prescriptions:
Continued
clonazepam 0.5 MG tablet
0.5 mg PO TID
Patient Comments:
09/03/2022: last filled 08/17/22, 60 tabs for 30 days from [facility]
zolpidem 10 MG tablet
10 mg PO HS
Patient Comments:
08/15/24: last filled 08/15/24 for 30 tablets over 30 days
mirtazapine 45 mg tablet
45 mg PO HS
perphenazine 16 mg tablet
16 mg PO HS
Kesimpta Pen 20 mg/0.4 mL pen injector
20 mg SC QMONTH
meclizine 25 mg tablet
25 mg PO [id number] PRN (Reason: dizziness)
ondansetron 4 mg Tablet,Disintegrating
4 mg PO Q8HPRN PRN (Reason: nausea/vomiting)
cholecalciferol (vitamin D3) 125 mcg (5,000 unit) capsule
125 mcg PO DAILY
prazosin 5 mg Capsule
5 mg PO HS
hydroxyzine pamoate 25 mg Capsule
25 mg PO BIDPRN PRN (Reason: anxiety)
duloxetine 30 mg Capsule,Delayed Release(Dr/Ec)
30 mg PO DAILY
tizanidine 2 mg Capsule
2 mg PO Q8HPRN PRN (Reason: muscle spasms)
rizatriptan 10 mg tablet,disintegrating
10 mg PO DAILYPRN PRN (Reason: headache)
pregabalin 75 mg capsule
75 mg PO TID
Patient Comments:
08/15/24: last filled 05/22/24 for 90 tabs over 30 days
Discharge Orders:
Discharge Patient (As Directed); Ordered 08/16/24
Ordered By: Daquan Suazo
Discharge Date and Time
Print Language: UGANDAN

Documented by User: Nahid Mcleod DO 08/16/24 17:10
Discharge Summary
Discharge Data
Date of Admission: 08/15/24
Date of Discharge: 08/16/24
Discharge Plan
-
Patient Disposition: Home (Routine Discharge)
Discharge Diagnosis/Procedures: Abrupt Visual Change secondary to Underlying Multiple Sclerosis
Diet: As tolerated and Regular
Activity: As tolerated
Driving Restrictions: As prior to admission
Bathing Restrictions: None
Referrals:
Lea Alegre MD [Family Provider] -
Additional Discharge Medication Instructions: Follow up with Neurologist due to persistent MS symptoms
Take Vitamin D 125mcg (5,000 units) supplement daily
Prescriptions:
Continued
clonazepam 0.5 MG tablet
0.5 mg PO TID
Patient Comments:
09/03/2022: last filled 08/17/22, 60 tabs for 30 days from [facility]
zolpidem 10 MG tablet
10 mg PO HS
Patient Comments:
08/15/24: last filled 08/15/24 for 30 tablets over 30 days
mirtazapine 45 mg tablet
45 mg PO HS
perphenazine 16 mg tablet
16 mg PO HS
Kesimpta Pen 20 mg/0.4 mL pen injector
20 mg SC QMONTH
meclizine 25 mg tablet
25 mg PO [id number] PRN (Reason: dizziness)
ondansetron 4 mg Tablet,Disintegrating
4 mg PO Q8HPRN PRN (Reason: nausea/vomiting)
cholecalciferol (vitamin D3) 125 mcg (5,000 unit) capsule
125 mcg PO DAILY
prazosin 5 mg Capsule
5 mg PO HS
hydroxyzine pamoate 25 mg Capsule
25 mg PO BIDPRN PRN (Reason: anxiety)
duloxetine 30 mg Capsule,Delayed Release(Dr/Ec)
30 mg PO DAILY
tizanidine 2 mg Capsule
2 mg PO Q8HPRN PRN (Reason: muscle spasms)
rizatriptan 10 mg tablet,disintegrating
10 mg PO DAILYPRN PRN (Reason: headache)
pregabalin 75 mg capsule
75 mg PO TID
Patient Comments:
08/15/24: last filled 05/22/24 for 90 tabs over 30 days
Discharge Orders:
Discharge Patient (As Directed); Ordered 08/16/24
Ordered By: Daquan Suazo
Discharge Date and Time
Print Language: UGANDAN
[2024-08-16 15:00] VITALS: BP 138/80
[2024-08-16] MEDS: DRISDOL (VITAMIN D2) 50000 UNITS PO (15:52)
[2024-08-16] MEDS: VITAMIN D3 (cholecalciferol) 125 MCG PO (15:54)
[2024-08-16] MEDS: AFLURIA (36 mos+) 2024-2025 FORMULA 0.5 ML IM (17:40)
== END 2024-08-16 19:00 | disposition home or self-care (01) | DRG 59 ==
LOC: 4 WEST ACU 19:03
PROVIDERS: Physician Assistant; ADMITTING PHYSICIAN Hospitalist; ATTENDING PHYSICIAN Internal Medicine; CONSULT PHYSICIAN Ophthalmology; CONSULT PHYSICIAN Psychiatry & Neurology Neurology; EMERGENCY PHYSICIAN Emergency Medicine; FAMILY PHYSICIAN Family Medicine
PROC: 3E02340 Introduction of Influenza Vaccine into Muscle, Percutaneous Approach (ICD-10-PCS; 2024-08-16)
DX: G35 Multiple sclerosis (principal); Z68.42 Body mass index [BMI] 45.0-49.9, adult; F43.10 Post-traumatic stress disorder, unspecified; D63.8 Anemia in other chronic diseases classified elsewhere; F32.A Depression, unspecified; F41.1 Generalized anxiety disorder; E66.01 Morbid (severe) obesity due to excess calories; F17.290 Nicotine dependence, other tobacco product, uncomplicated; G89.29 Other chronic pain; I89.0 Lymphedema, not elsewhere classified; H53.2 Diplopia; E55.9 Vitamin D deficiency, unspecified; Z82.0 Family history of epilepsy and other diseases of the nervous system; Z79.899 Other long term (current) drug therapy; Z23 Encounter for immunization
CPT/HCPCS: 70450; 70551; 80053; 80306; 81003; 82077; 82306; 82607; 82728; 82746; 84439; 84443; 84703; 85025; 85652; 86140; 87070; 90686; 93005; 96365; 99285; G0008

== ENCOUNTER 2024-08-24 11:46 | Emergency (ER) | payer OTHER, SELFPAY ==
[2024-08-24 11:48] VITALS: BP 137/56
[2024-08-24 11:51] VITALS: BP 137/56; BMI 47.3
[2024-08-24 12:00] VITALS: BP 114/67
[2024-08-24 12:14] LABS: % Basophils 0.2 % (0-2); % Eosinophils 0.2 % (0-6); % Immature Granulocytes 0.3 % (0-0.5); % Lymphocytes 9.2 % (20.5-51.1); % Monocytes 2.7 % (1.7-9.3); % Neutrophils 87.4 % (42.2-75.2); Absolute Lymphocytes 0.9 10^3/uL (1.2-3.4); Absolute Monocytes 0.3 10^3/uL (0.1-0.6); Absolute Neutrophils 8.6 10^3/uL (1.4-6.5); Hematocrit 31.8 % (37.0-47.0); Hemoglobin 10.1 g/dL (12.0-16.0); Mean Corp Hgb Conc. 31.8 g/dL (33.0-37.0); Mean Corpuscular Hgb 25.8 pg (27.0-31.0); Mean Corpuscular Volume 81.3 fL (81.0-99.0); Mean Platelet Volume 12.6 fL (7.4-10.4); Nucleated Red Blood Cells % 0 %; Platelet Count 388 10^3/uL (130-400); Red Blood Cell Count 3.91 10^6/uL (4.20-5.40); Red Cell Dist. Width 15.9 % (11.5-14.5); White Blood Cell Count 9.9 10^3/uL (4.8-10.8)
[2024-08-24 12:24] LABS: ALT (SGPT) 23 U/L (0-35); AST (SGOT) 20 U/L (14-36); Albumin 4.2 g/dl (3.5-5.0); Alkaline Phosphatase 102 U/L (38-126); Blood Urea Nitrogen 8 mg/dl (7-17); Calcium 9.7 mg/dl (8.4-10.2); Carbon Dioxide 25 mmol/L (22-30); Chloride 105 mmol/L (98-107); Estimated Creatinine Clearance > 125 ml/min; Glucose 119 mg/dl (70-99); Sodium 140 mmol/L (135-145); Total Bilirubin 0.4 mg/dl (0.2-1.3); eGFR > 60.00
[2024-08-24 13:00] VITALS: BP 114/74
--- NOTE | 2024-08-24 13:00 | EDRN ---
Dr. Hammer in room w/ pt at this time.
[2024-08-24 14:00] VITALS: BP 117/68
--- NOTE | 2024-08-24 14:21 | ED.GENMED ---
History of Present Illness
General
Chief Complaint: Swelling
Source: patient and records
Exam Limitations: none
Time Seen by Provider: 08/24/24 12:51
Nursing documentation reviewed up to this point in time: agreed with
History of Present Illness
History of Present Illness:
34-year-old female with a past medical history of MS, chronic pain, schizophrenia, distant history of polysubstance use (7 years sober reportedly) presents to the ER for evaluation of headache and back pain, nausea and vomiting. Patient was notably
admitted to this hospital 08/15 until 08/16�concern for MS flare. She was treated with steroids in the hospital but not on steroids at discharge. She says that symptoms from prior admission have resolved. She reports that yesterday she developed
nausea and vomiting in the early afternoon and was vomiting throughout the day and all night. Denies any diarrhea. She says that she has had associated pain in the head�she reports 'not a headache but a sharp pain in my forehead.' She says she
also has some pain shooting up her back. She denies any numbness or weakness in her arms or legs aside from some chronic slight left-sided weakness. She denies any change in her vision or speech at present. She has not had any abdominal pain.
She denies any chest pain or shortness of breath. She says initially she thought her symptoms could be from a viral illness but she thought that headache was more consistent with prior MS flares and so she came to the ER to be evaluated.
Fortunately she says that nausea and vomiting have improved since arrival in the ER without intervention.
Past History
Past History
ED Past Medical History: NIDDM, Psychiatric (Generalized anxiety disorder, PTSD, Depression,. Schizophrenia, ) and Other (Vertigo, multiple sclerosis, probable relapsing remitting type with lesions in brain, at C7, and conus medullaris ,Chronic abd
pain, anemia, 'Lymphanoma')
ED Past Surgical History: Appendectomy and Gynecological (Fallopian tube removed)
Social History
Tobacco: Former smoker
Alcohol: None
Drug: Other (Heroin)
Personal:
Living: with family (with Mother)
Employment: Not employed
Family History
Family History: Other (uncle with MS)
Review of Systems
Review of Systems
All Other Systems: ROS reviewed and negative except as documented in HPI and ROS
Constitutional: Denies fever or chills
Respiratory: Denies trouble breathing
Cardiac: Denies chest pain
ABD/GI: Reports nausea and vomiting; Denies abdominal pain
: Denies flank pain
Musculoskeletal: Reports back pain; Denies neck pain
Neurological: Reports headache; Denies dizzy, weakness or numbness
Phy Exam
Physical Exam
Physical Exam:
General: Awake, alert, oriented x3; no acute distress
Head: Normocephalic, atraumatic
Eyes: Conjunctiva normal, EOMI, pupils equal round and reactive to light bilaterally
Throat: Airway intact, dry mucous membranes
Neck: Trachea midline, supple without meningismus
Lungs: Clear to auscultation bilaterally, no wheezing, rales, rhonchi
Heart: Regular rate and rhythm, no murmurs, gallops, or rubs
Abd: Soft, non distended, nontender
Neuro: Cranial nerves intact, speech fluid, no limb ataxia, subtle weakness on left arm genetics teacher strength but proximal strength intact in the upper extremities, lower extremities strength intact and symmetric bilaterally
Skin: no rash
Extremities: No edema in extremities, equal pulses in all extremities
Scores
Heart Failure Risk
Heart Failure Risk Score: Not Applicable
Heart Score for Chest Pain Patients
STEMI patient?: Not applicable
Withdrawal Assessment of Alcohol
Withdrawal Assessment Completed?: Not applicable
Course
Orders/Labs/Results
Orders:
Orders
08/24/24 12:00
Complete Blood Count/With Diff Urgent
Comprehensive Metabolic Panel Urgent
HCG, Serum Qualitative Screen Urgent
Comment: ADDON
Lipase Urgent
Comment: ADDON
08/24/24 13:13
NEUROLOGY CONSULT Urgent
Consulting Provider: Enrique Shook
Was physician already notified: Yes
08/24/24 13:28
CT Head W/o Iv Contrast Urgent
Comment:
Reason For Exam: headache
08/24/24 14:28
Add On- LAB Urgent
Tests Added?: HCG qual, lipase
Electrocardiogram (*1) Urgent
Reason for Study: TIA/Stroke
EKG- Treatment ONCE
0.9% Sodium Chloride 1000 ml [Nss] 1,000 ml IV BOLUS
08/24/24 14:37
COVID-19 Antigen Urgent
Source: Nasal Swab
Influenza A+B Rapid Molecular Urgent
ROQUE Source: Nasal Swab
Specimen Description:
08/24/24 14:59
Bupivacaine Pf 0.5% [Sensorcaine 0.5% Single Dose] 30 ml INJ ONCE ONE
08/24/24 15:01
Triamcinolone Injectable [Kenalog-40] 40 mg IM NOW ONE
08/24/24 17:12
Acetaminophen [Tylenol] 1,000 mg PO NOW STA
Abnormal Lab Results
08/24/24
12:00
RBC 3.91 L 10^6/uL
(4.20-5.40)
Hgb 10.1 L g/dL
(12.0-16.0)
Hct 31.8 L %
(37.0-47.0)
MCH 25.8 L pg
(27.0-31.0)
MCHC 31.8 L g/dL
(33.0-37.0)
RDW 15.9 H %
(11.5-14.5)
MPV 12.6 H fL
(7.4-10.4)
Absolute Neuts (auto) 8.6 H 10^3/uL
(1.4-6.5)
Absolute Lymphs (auto) 0.9 L 10^3/uL
(1.2-3.4)
Neutrophils % 87.4 H %
(42.2-75.2)
Lymphocytes % 9.2 L %
(20.5-51.1)
Glucose 119 H mg/dl
(70-99)
08/24/24 12:00
08/24/24 12:00
Vital Signs
Initial and Last Documented VS:
Initial Vital Signs
BP
137/56
08/24/24 11:48
Last Documented Vital Signs
Temp Pulse Resp BP Pulse Ox
37.0 C 82 19 117/68 99
08/24/24 11:51 08/24/24 15:00 08/24/24 15:00 08/24/24 14:00 08/24/24 15:00
MDM/Problems Addressed
Differential Diagnosis Includes:
Viral syndrome, pancreatitis, cholelithiasis, MS flare/neuritis, gastritis
MDM/Problems Addressed:
34-year-old female presents for evaluation of headache and back pain associate with nausea and vomiting. Vitals and exam as above. Plan to place an IV check labs including a CBC and a CMP, lipase. Check an EKG. Will check CT head. Will provide
some fluids. Clinical suspicion is that this is a viral syndrome. Patient is quite concerned that this is MS related�would be atypical she reports pain across the forehead sharp, would expect the trigeminal neuralgia to be more unilateral. I did
discuss the case with neurology to evaluate. Will reassess after the above.
Labs reviewed: CBC and CMP unremarkable. COVID and flu negative. CT head no acute pathology. Patient seen by neurology who performed some OMT therapy on neck which improved patient's symptoms. Suspect occipital neuralgia, migraine. Do not
suspect MS related symptoms. Patient feeling better, stable for discharge. Spoke about return precautions all questions answered.
Chronic conditions affecting care:
MS
*Radiology
Radiology exam reviewed: radiology read reviewed
*Pulse Oximetry
Patient hypoxic: no
*Critical Care Note
Total Time (30-74mins, 75-104mins- exclusive of procedures): Not Applicable
Data Reviewed
Review of Other/Old Records Reveals: Labs, Records and Discharge Summary
Source: patient and records
Patient Management
Discussion with other providers: Service Worker (Discussed with neurologist)
ED Attending Note
-
Portions of this chart may have been created with voice recognition software.� Occasional wrong word or��sound alike� substitutions may have occurred due to the inherent limitations of voice recognition software.
Discharge Plan
Departure
Patient Disposition: Home (Routine Discharge)
Date of Disposition: 08/24/24
Time of Disposition: 17:15
Patient with high blood pressure during this ER visit?: No
Discharge Problem:
Headache
Instructions: Headaches in adults
Prescriptions:
No Action
clonazepam 0.5 MG tablet
0.5 mg PO TID
Patient Comments:
09/03/2022: last filled 08/17/22, 60 tabs for 30 days from [facility]
zolpidem 10 MG tablet
10 mg PO HS
Patient Comments:
08/15/24: last filled 08/15/24 for 30 tablets over 30 days
mirtazapine 45 mg tablet
45 mg PO HS
perphenazine 16 mg tablet
16 mg PO HS
Kesimpta Pen 20 mg/0.4 mL pen injector
20 mg SC QMONTH
meclizine 25 mg tablet
25 mg PO [id number] PRN (Reason: dizziness)
ondansetron 4 mg Tablet,Disintegrating
4 mg PO Q8HPRN PRN (Reason: nausea/vomiting)
cholecalciferol (vitamin D3) 125 mcg (5,000 unit) capsule
125 mcg PO DAILY
prazosin 5 mg Capsule
5 mg PO HS
hydroxyzine pamoate 25 mg Capsule
25 mg PO BIDPRN PRN (Reason: anxiety)
duloxetine 30 mg Capsule,Delayed Release(Dr/Ec)
30 mg PO DAILY
tizanidine 2 mg Capsule
2 mg PO Q8HPRN PRN (Reason: muscle spasms)
rizatriptan 10 mg tablet,disintegrating
10 mg PO DAILYPRN PRN (Reason: headache)
pregabalin 75 mg capsule
75 mg PO TID
Patient Comments:
08/15/24: last filled 05/22/24 for 90 tabs over 30 days
Referrals:
NONE,* [Family Provider] -
Activity Restrictions/Additional Instructions:
Thank you for visiting the Emergency Department at [facility].
1. Please schedule a follow up appointment as directed. Call first thing tomorrow morning to make an appointment.
2. If indicated, please take your medications as instructed and indicated on discharge paperwork.
3. If any of your symptoms do not improve, or persist, or become more severe within 6-12 hours, please return to the emergency department for further care.
4. Please return to the emergency department if you develop a headache, neck pain/stiffness, fever greater than 100.4F, chest pain, shortness of breath, persistent nausea, vomiting, slurred speech, difficulty walking, numbness/tingling, weakness,
signs of infection or any other symptoms that are worrisome to you.
Please call [phone] if you have any questions.
Interventions
Interventions:
*Risk Screen - Suicide Last Done: 08/24/24 11:51
*General Assessment Last Done: 08/24/24 11:51
*Neglect/Abuse Screening Last Done: 08/24/24 11:51
ED- Fall Risk Assessment Last Done: 08/24/24 11:51
*ED COVID-19 Vaccine History Last Done: 08/24/24 11:51
ED- Cardiac Assessment Last Done: 08/24/24 12:00
ED- Pulmonary Assessment Last Done: 08/24/24 12:00
ED-Skin Assessment Last Done: 08/24/24 12:00
Discharge Date and Time
Print Language: SOU[place] KORE[place]
--- NOTE | 2024-08-24 14:30 | EDRN ---
Neurologist Dr. Cervantes was in to see pt at this time.
[2024-08-24 15:08] LABS: COVID-19 Antigen Negative (Negative)
[2024-08-24 15:10] LABS: Lipase 23 U/L (23-300)
[2024-08-24 15:29] LABS: HCG, Serum Qualitative Screen Negative
--- NOTE | 2024-08-24 16:07 | CON.NEURO ---
Neuro Assessment/Plan
Assessment
migraine, neck pain due to right occipital neuralgia, cervical subluxation, paraspinal and trapezius trigger points
low back pain due to sacroilitis, SI joint subluxation
nothing to do with her MS
OMT atlantoaxial, cervical mobilization, sacroiliac mobilization with some relief
Plan
ok to d/c from ED
Consultation
Order
Date of Consultation: 08/24/24
Requesting Provider: Cornelius Hammer Jr
Reason for Consult: multiple sclerosis, headache, back pain
Subjective/Objective
Subjective Data
Date of Service: August 24, 2024
She is a 34 year old woman with h/o multiple sclerosis, on Kesimpta monthly, recently seen here for loss of color vision, suspected optic neuritis/MS flare - found not to be the case. Her color vision loss has resolved
presents with 2 days of headache frontal, throbbing, photophobia, phonophobia, neck pain, low back pain. no new weakness or numbness
Objective Data
Vital Signs
Temp Pulse Resp BP Pulse Ox
37.0 C 61 22 117/68 98
08/24/24 11:51 08/24/24 14:00 08/24/24 14:00 08/24/24 14:00 08/24/24 14:00
Lab Results
08/24/24 12:00
08/24/24 12:00
Sodium 140 mmol/L (135-145) 08/24/24 12:00
Potassium 4.0 mmol/L (3.5-5.1) 08/24/24 12:00
BUN 8 mg/dl (7-17) 08/24/24 12:00
Glucose 119 mg/dl (70-99) H 08/24/24 12:00
Calcium 9.7 mg/dl (8.4-10.2) 08/24/24 12:00
Patient Allergies
No Known Allergies Allergy (Verified 08/24/24 11:50)
Physical Exam
-
AAOx3, speech clear, language intact
VFF, EOMI, face symmetric
full strength b/l UE/LE
sensation intact touch/pin
tender b/l supraorbital nerves, right DENY, right c5 paraspinals trigger point with subluxation, bilateral trapezius subluxation.
long sitting test positive - right leg longer
Medications
-
Home Medications
�Medication �Instructions �Recorded
clonazepam 0.5 mg tablet 0.5 mg PO TID Mental Health/Anxiety 10/08/20
zolpidem 10 mg tablet 10 mg PO HS sleep 10/08/20
cholecalciferol (vitamin D3) 125 125 mcg PO DAILY Supplement 09/03/22
mcg (5,000 unit) capsule
meclizine 25 mg tablet 25 mg PO [id number] PRN dizziness 09/03/22
mirtazapine 45 mg tablet 45 mg PO HS Mental Health/Anxiety 09/03/22
ofatumumab 20 mg/0.4 mL 20 mg SC QMONTH Cancer 09/03/22
subcutaneous pen injector
(Kesimpta Pen)
ondansetron 4 mg disintegrating 4 mg PO Q8HPRN PRN nausea/vomiting 09/03/22
tablet
perphenazine 16 mg tablet 16 mg PO HS Sleep 09/03/22
duloxetine 30 mg capsule,delayed 30 mg PO DAILY 08/15/24
release
hydroxyzine pamoate 25 mg capsule 25 mg PO BIDPRN PRN anxiety 08/15/24
prazosin 5 mg capsule 5 mg PO HS 08/15/24
pregabalin 75 mg capsule 75 mg PO TID Pain 08/15/24
rizatriptan 10 mg disintegrating 10 mg PO DAILYPRN PRN headache 08/15/24
tablet
tizanidine 2 mg capsule 2 mg PO Q8HPRN PRN muscle spasms 08/15/24
[2024-08-24] MEDS: NSS 1000 IV (16:31)
[2024-08-24] MEDS: TYLENOL 1000 MG PO (17:17)
[2024-08-24 18:02] VITALS: BP 120/76
== END 2024-08-24 18:05 | disposition home or self-care (01) ==
LOC: EMR 11:46
PROVIDERS: CONSULT PHYSICIAN Psychiatry & Neurology Clinical Neurophysiology; EMERGENCY PHYSICIAN Emergency Medicine
DX: R51.9 Headache, unspecified (principal); R11.2 Nausea with vomiting, unspecified; M54.9 Dorsalgia, unspecified; Z11.52 Encounter for screening for COVID-19; G35 Multiple sclerosis; F20.9 Schizophrenia, unspecified; F19.91 Other psychoactive substance use, unspecified, in remission; E11.9 Type 2 diabetes mellitus without complications; F41.1 Generalized anxiety disorder; F43.10 Post-traumatic stress disorder, unspecified; F32.A Depression, unspecified; D64.9 Anemia, unspecified; G89.29 Other chronic pain; Z87.891 Personal history of nicotine dependence
CPT/HCPCS: 99284; 96360; 70450; 80053; 83690; 84703; 85025; 87502; 87811; 93005

== ENCOUNTER 2025-03-24 16:55 | Emergency (ER) | payer OTHER, SELFPAY ==
[2025-03-24 16:57] VITALS: BP 135/94
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
[2025-03-24 17:33] VITALS: BMI 41.5
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
--- NOTE | 2025-03-24 18:17 | EDRN ---
Pt assisted to bathroom and states 'I know my rights I want to leave'. explanation of care and concern was provided to pt and recommendation to stay but pt still requesting to leave. Provider notified and aware of situation saying he wants to
discuss situation with pt further and figure out transportation
--- NOTE | 2025-03-24 18:36 | EDRN ---
Pt able to ambulate with steady gait under direct supervision of RNs and Provider Vanessa. Lyft was supposed to be set up but pt wanted to leave with great Aunt. Aunt was spoken to on phone with pt and RNs stating she is driving to hospital
now while pt sits on bench outside waiting room. Charge nurse aware
--- NOTE | 2025-03-24 18:51 | EDRN ---
Pt ready to leave and uncooperative to obtain vital signs for discharge
== END 2025-03-24 18:52 | disposition home or self-care (01) ==
LOC: EMR 16:55
PROVIDERS: EMERGENCY PHYSICIAN Emergency Medicine; FAMILY PHYSICIAN Family Medicine
DX: S09.90XA Unspecified injury of head, initial encounter (principal); Y04.0XXA Assault by unarmed brawl or fight, initial encounter; G35 Multiple sclerosis; E11.9 Type 2 diabetes mellitus without complications; Z79.899 Other long term (current) drug therapy; Z59.89 Other problems related to housing and economic circumstances
CPT/HCPCS: 99282

== ENCOUNTER 2025-04-07 11:10 | Inpatient (IN) | payer OTHER, SELFPAY ==
[2025-04-06 20:38] VITALS: BP 159/78
[2025-04-06 21:00] LABS: Hematocrit 31.7 % (37.0-47.0); Hemoglobin 10.0 g/dL (12.0-16.0); Mean Corp Hgb Conc. 31.5 g/dL (33.0-37.0); Mean Corpuscular Volume 83.9 fL (81.0-99.0); Nucleated Red Blood Cells % 0 %; Platelet Count 435 10^3/uL (130-400); Red Cell Dist. Width 18.3 % (11.5-14.5)
[2025-04-06 21:17] LABS: HCG, Serum Qualitative Screen Negative
[2025-04-06 21:21] LABS: ALT (SGPT) 48 U/L (0-35); AST (SGOT) 75 U/L (14-36); Albumin 4.7 g/dl (3.5-5.0); Alkaline Phosphatase 151 U/L (38-126); Blood Urea Nitrogen 10 mg/dl (7-17); Calcium 9.4 mg/dl (8.4-10.2); Carbon Dioxide 18 mmol/L (22-30); Chloride 112 mmol/L (98-107); Glucose 94 mg/dl (70-99); Potassium 4.2 mmol/L (3.5-5.1); Sodium 141 mmol/L (135-145); Total Protein 7.9 g/dl (6.3-8.2); eGFR > 60.00
[2025-04-06 22:10] VITALS: BMI 44.2
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
--- NOTE | 2025-04-06 22:19 | EDRN ---
Pt says she has 5 step-children and the two oldest picked her up and brought her to the ED. Pt says she had 'only a little bit' of alcohol this morning. Pt does not work because she has MS. Paperwork from [employer] dropped off in pt room for her to
read later. 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 Pt very tearful, loud with rambling speech. Slipper socks applied.
--- NOTE | 2025-04-06 22:33 | EDRN ---
Pt ambulatory to bathroom assist of 2. Stretcher scale zeroed and pt reweighed when she returned.
[2025-04-06 22:34] VITALS: BP 115/63
[2025-04-06 23:00] VITALS: BP 98/54
[2025-04-07] VITALS (14 sets, daily range): BP systolic 89–145; BP diastolic 39–97
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
--- NOTE | 2025-04-07 08:20 | EDRN ---
[facility] currently at the pts bedside
[2025-04-07] MEDS: VALIUM INJECTION 5 MG IV ×2 (08:42→11:38)
[2025-04-07] MEDS: ZOFRAN 4 MG IV ×2 (08:42→11:38)
--- NOTE | 2025-04-07 08:50 | EDRN ---
this RN received the pt from previous rn shift mgr nurse Tammy Garland RN, this RN entered the pts room to introduce this RN's self and to assess the pt and the pt was found in her street clothes, crying, tremulous, vomiting, and not on the monitor,
when this RN entered the pts room the pt stated, 'Can you please help me, I am so sorry but nothing has been done all night and I am here for alcohol withdrawl and i believe that i am having an MS flare up as my left left arm are more weak than
normal and I just want something for the nausea and the shakes and just to feel better, and I have been getting myself water out of the sink and I just feel so terrible', this RN asked the pt if she would be okay changing into a patient gown and the
pt stated that she would do so, the pt changed into patient gown on her own and this RN then placed the pt on the vehicle monitor technician, BP cuff, and Sp02 monitor, [facility] also came to the pts bedside to speak with the pt, during this time, this RN went to
speak with Dr. Gentile who shortly after came to the pts bedside to see the pt, NIH was done at the pts bedside with Dr. Gentile present and the pt has weakness and decreased sensation (numbness/tingling) in the left upper and lower extremities,
the pt states that she walks with a single point cane at home and has not fallen before, per Dr. Gentile the pt will be admitted and neurology will be consulted, this RN asked for medications for the pt for tremors and nausea which Dr. Gentile
provided, this RN placed a RAC PIV which the pt agreed to and per the provider this RN sent the pts urine that the pt provided which the pt was also agreeable to, the pt is resting in stretcher in the lowest position, side rails up x2, call hoang
within reach, HOB elevated per the pts request, non skid slippers on, this RN educated the pt on the use of the call hoang if the pt does need to get up to use the bathroom, the pt asked for pads due to having her menses which this RN provided for
the pt, the pt also asked if she could speak with this RN about speaking with the ER Nurse Lead Assistant Manager, this RN notified Tracy Romero that the pt wanted to speak with her when she got a moment, will continue to monitor the pt closely and await for
further orders
[2025-04-07 09:10] LABS: Urine Character Clear (Clear)
--- NOTE | 2025-04-07 09:10 | EDRN ---
the pt pressed the call hoang and this RN entered the pts room, the pt stated that she needed to go to the bathroom, this RN unhooked the pt from quality assurance monitor final, BP cuff, and Sp02 monitor and the pt was able to get herself out of the stretcher
independently, this RN provided the pt with her cane that was at the pts bedside, this RN watched the pt ambulate to the bathroom with no issue, the pt denied dizziness, pt states that left leg is weak however she states that she is managing okay,
this RN asked the pt if this RN could stay in the bathroom with her and the pt asked for privacy, when the pt was done she was able to ambulate back to the stretcher with no issues, pt placed back on quality assurance monitor final, BP cuff, and Sp02 monitor, side
rails up x2, call hoang within reach, HOB elevated, will continue to monitor the pt closely
[2025-04-07 09:28] LABS: Urine Red Blood Cell 0-2 /HPF (0-2); Urine Squamous Cell 16-20 /LPF (Few); Urine White Cell 0-2 /HPF (0-5)
--- NOTE | 2025-04-07 09:57 | CON.NEURO ---
Addendum entered and electronically signed by Fantasma Sadler MD 04/07/25 13:11:
Studies reviewed.
I have personally examined the patient. I reviewed and agree with the HARBOR MASTER's Note.
My addenda:
Awake, alert, interactive. No acute distress.
Speech intact.
Follows 2-step requests w/o difficulty. No tremor.
Extra-ocular movements grossly intact.
Facial movements full and symmetric. Hearing intact to normal conversational volume.
Normal UE movements bilaterally. Variable attempt at movement of bilateral lower extremities
Neck: full ROM.
Chest: no dyspnea
Heart: no JVD
Ext: (-) Clubbing, (-) Cyanosis, (-) Edema
IMPRESSIONS/RECOMMENDATIONS:
Abrupt onset of left-sided weakness while also having severe alcohol intoxication suggesting a pseudo exacerbation of the patient's prior history of multiple sclerosis
As previously suggested to the patient, an alternative medication to her current therapy for multiple sclerosis may be of benefit
No clear benefit at this time to the patient undergoing repeated MRI of the brain
Aggressive therapy in hopes of reducing the patient's underlying anxiety and depression may be of benefit
Would attempt to continue current pregabalin
Obtain records from most recent MRIs performed at local outside hospital
D/W patient
All questions answered.
Will continue to follow as needed.
Original Note:
Neuro Assessment/Plan
Assessment
Patient is a 34 years old female with history of multiple sclerosis on Kesimpta, prior history of polysubstance abuse, PTSD, anxiety, depression who presented to [facility] on 04/07/2025 with concern for left lower extremity numbness and weakness.
Head CT 04/07/2025: No evidence of acute intracranial abnormality.
Brain MRI 08/16/2024: Examination is limited by motion artifact as well as patient being unable to tolerate the entire examination.
Focus of increased FLAIR signal within the medial right temporal lobe, stable from previous MRI examination, and most likely a stable demyelinating plaque.
Focus of increased FLAIR signal within the white matter of the right parietal lobe, stable, and could represent a small demyelinating plaque, although nonspecific.
No evidence for a new focal area of demyelination.
Plan
Impression: abrupt onset of LLE numbness and weakness most likely due to psuedo relapse of her multiple sclerosis rather than true relapse given recurrence of prior symptoms and recent increased stress
-obtain records from [facility]
-patient had MRIs taken on 03/19/2025 no need for new MRIs at this time
-patient with anxiety and depression and tearful throughout exam, would not give steroids at this time
-continue with disease modifying therapy
-consider psych consult or follow up with psychology outpatient
-follow up with usual outpatient neurologist
All questions encouraged and answered, plan of care discussed with Dr. Sadler and patient
Consultation
Order
Date of Consultation: 04/07/25
Requesting Provider: hospitalist
Reason for Consult: MS
Subjective/Objective
Subjective Data
Date of Service: April 07, 2025
Patient is a 34 years old female with history of multiple sclerosis on Kesimpta, prior history of polysubstance abuse, PTSD, anxiety, depression who presented to [facility] on 04/07/2025 with concern for left lower extremity numbness and weakness.
Patient has been stressed lately and drinking alcohol daily. In the ED patient was hemodynamically stable, nontoxic, although found to be anxious and tremulous. She states she has LLE numbness and weakness which began 3 days ago and was unable to
get a ride until yesterday which prompted her ER visit. Patient does not have a phone and did not call her neurologist. She saw her usual neurologist last month and obtained MRIs on 03/19/2025 at [facility]. Has an appointment to follow up
with her neurologist at [facility] in April. She states she has progressive weakness and is now unable to put weight on her left leg. Denies issues with speech or swallow. Denies vision changes. Denies issues with bowel/bladder. She denies any
chest pain or shortness of breath. Currently on Kesimpta and is due for her injection on April 19. States she only has one week out of a the month where she feels 'ok.' Most weeks she cannot get out of bed. In the ED her head CT showed no
evidence of acute intracranial abnormality. Patient was notably admitted to this hospital 08/15 until 08/16�concern for MS flare. She was treated with steroids in the hospital but not on steroids at discharge.
Was seen by our practice in the hospital on 07/2024. 'This is a 37 year old right handed female with a past medical history of MS diagnosis 2020, chronic pain, posttraumatic stress disorder, anxiety, depression and vertigo who has presented to the ""hospital with acute onset of vision changes 08/14/2024. She reports she started to notice visual deficits about 6 pm. She does admit to significant fatigue. She was up all night [place] ever preparing for the day. She described her vision as
pina and was so poor she was having difficulty making out faces. She denied any double vision. She denied any additional flashing lights or floaters. She denied any eye pain. She denied any associated headache. She has not had vision issues in
the past. She did follow up with [facility] this past summer per recommendation of her Neurologist Dr. Boone, who she sees for MS. She has been taking Kesimpta. She denies any adverse side effects or missed doses. She has chronic back pain and
[facility], and had a recent injection and is due back for follow-up appointment. She denies any changes in gait, new weakness or trouble with coordination. She denied any speech changes. She denies
any new numbness or tingling.
She does have a history of migraines, but has not had a recurrence in sometime.
HPI was obtained from patient though limited d/t patients fatigue, falling asleep between questioning and review of the EMR.
Of note she was seen by our practice as an inpatient in 2020 and 2022'
Objective Data
Vital Signs
Temp Pulse Resp BP Pulse Ox
98.6 F 58 20 130/69 100
04/07/25 08:36 04/07/25 09:00 04/07/25 08:36 04/07/25 09:00 04/07/25 09:22
Lab Results
04/06/25 20:54
04/06/25 20:54
Sodium 141 mmol/L (135-145) 04/06/25 20:54
Potassium 4.2 mmol/L (3.5-5.1) 04/06/25 20:54
BUN 10 mg/dl (7-17) 04/06/25 20:54
Glucose 94 mg/dl (70-99) 04/06/25 20:54
Calcium 9.4 mg/dl (8.4-10.2) 04/06/25 20:54
Ur Buprenorphine Negative (Negative) 04/07/25 08:34
Patient Allergies
No Known Allergies Allergy (Verified 04/06/25 22:11)
Physical Exam
-
General: No Apparent Distress, Morbidly Obese and Appears Stated Age
Eyes: Round OU, Kaylor Conjunctivae and No Ptosis
HEENT: Anicteric and Moist Mucous Membranes
Neck: Full Range of Motion
Respiratory: No Dyspnea
Cardiac: No JVD
GI: Non-distended
Skin: Unremarkable
Extremities: No Clubbing, No Cyanosis and No Edema
Psych: Depressed (tearful)
Extended Neurological Exam
Mood & Affect: Depressed (tearful)
Attention Span & Concentration: Awake, Alert, Interactive and No Difficulty with 2 Step Request
Memory: Unremarkable
Tremor: Hand Tremor Absent and Head Tremor Absent
Speech: Quality Unremarkable, Quantity Unremarkable and Rate of Production Unremarkable
Cranial Nerve II: Left Eye: Pupillary Size Unremarkable and Visual Henriquez Grossly Intact
Cranial Nerve II: Right Eye: Pupillary Size Unremarkable and Visual Henriquez Grossly Intact
Cranial Nerves III, IV, : Extraocular Movement: Grossly Intact
Cranial Nerve VII: Facial Symmetry: Normal Facial Symmetry
Cranial Nerve VIII: Hearing: Unremarkable Hearing to Normal Conversational Volume
Cranial Nerves IX, X: Palate Movement: Palate Elevation Symmetric
Cranial Nerve XI: Shoulder Shrug: Unremarkable
Muscle Strength, Overall: Reduced (Leg lift in bilateral lower extremities left greater than right with inability to lift left leg off of bed greater than 3 seconds) and Otherwise Intact
Muscle Bulk & Tone: Tone Unremarkable and Increased Bulk (Due to obesity)
Pronator Drift: No Drift in Upper Extremities
Touch Sensation: Unremarkable
Coordination: Ghrgqw-flep-ebomro Testing Unremarkable
Data Reviewed
-
CT Head: Report Reviewed and Image Reviewed
MRI Head: Report Reviewed and Image Reviewed
Labs: Report Reviewed
Reviewed with: Physician and Patient
Old Records: Summarized
Medications
-
Home Medications
�Medication �Instructions �Recorded
clonazepam 0.5 mg tablet 0.5 mg PO BID Mental Health/Anxiety 10/08/20
zolpidem 10 mg tablet 10 mg PO HS sleep 10/08/20
meclizine 25 mg tablet 25 mg PO [id number] PRN dizziness 09/03/22
mirtazapine 45 mg tablet 45 mg PO HS Mental Health/Anxiety 09/03/22
ofatumumab 20 mg/0.4 mL 20 mg SC QMONTH Cancer 09/03/22
subcutaneous pen injector
(Kesimpta Pen)
ondansetron 4 mg disintegrating 4 mg PO Q8HPRN PRN nausea/vomiting 09/03/22
tablet with headaches
perphenazine 16 mg tablet 16 mg PO HS Sleep 09/03/22
hydroxyzine pamoate 25 mg capsule 25 mg PO BIDPRN PRN anxiety 08/15/24
prazosin 5 mg capsule 5 mg PO HS 08/15/24
pregabalin 75 mg capsule 75 mg PO TID Pain 08/15/24
rizatriptan 10 mg disintegrating 10 mg PO DAILYPRN PRN headache 08/15/24
tablet
duloxetine 60 mg capsule,delayed 60 mg PO DAILY 04/07/25
release
Past History
Past History
ED Past Medical History: NIDDM, Psychiatric (Generalized anxiety disorder, PTSD, Depression,. Schizophrenia, ) and Other (Vertigo, multiple sclerosis, probable relapsing remitting type with lesions in brain, at C7, and conus medullaris ,Chronic abd
pain, anemia, 'Lymphanoma')
ED Past Surgical History: Appendectomy and Gynecological (Fallopian tube removed)
Family/Social History
Tobacco: Former smoker
Alcohol: None
Drug: Other (Heroin)
Personal:
Living: with family (with Mother)
Employment: Not employed
Family History: Other (uncle with MS)
--- NOTE | 2025-04-07 10:10 | EDRN ---
Dr. Sadler currently at the pts bedside
--- NOTE | 2025-04-07 10:20 | EDRN ---
the pt pressed the call hoang and this RN entered the pts room and the pt stated that she needed to use the bathroom, this RN unhooked the pt from the monitor and provided the pt with her cane that was sitting at the side of the bed, the pt was able
to get herself out of the stretcher independently and was able to ambulate with her single point cane to the bathroom and non skid socks with no issues, this RN was standing outside of the pts room ER Bed #23 and heard the pt yell for help, this RN
entered the pts room and found the pt laying on the ground on the right side, the pt stated to this RN, 'My left leg gave out on me, i am so upset this has never happened before', and the pt started to cry, this RN, Lulu Marks RN, and [facility] were able to assist the pt off of the floor with the pts help and the pt was able to get back into the stretcher, the pt stated that she hit her right forehead on the floor and had 'slight' head pain, this RN assessed the pt and there
were no s/s of trauma or distress, the pt was placed back on the campus monitor, BP cuff, and Sp02 monitor, side rails up, HOB elevated, call hoang within reach, this RN immediately notified Dr. Gentile who ordered a head CT, no c/o nausea,
vomiting, dizziness
--- NOTE | 2025-04-07 10:39 | HPS.HSE ---
Family Physician
-
Family Physician: ZULEYMA Summers
Chief Complaint
-
Concern for alcohol withdrawal, emotional distress, flareup of multiple sclerosis.
History of Present Illness
Patient is a 34 years old female with history of multiple sclerosis, prior history of IV heroin use who presents to the emergency room with concern for alcohol withdrawal. Patient is not under emotional distress with multiple family issues
consuming alcohol about bottle of whiskey daily presents to the emergency room with concern for active alcohol withdrawal. In the ED patient is hemodynamically stable, nontoxic, although found to be anxious and tremulous. In addition patient is
also complaining of a left-sided weakness which she is attributed to her multiple sclerosis. She states her weakness with pain worsening of the last few days. Patient is on monthly injection of Kesimpta which she is due April 19.
Medical History
Past Medical History
Past Medical History: Reports Other (Multiple sclerosis)
Past Surgical History: Reports None
Social History
Tobacco: Smoker (Vaping)
Alcohol: Daily (Bottle of the skin)
Drug: Former User (Recovered IV heroin user) and IVDA
Family History
Family History: Not pertinent
Allergies / Home Medications
Allergies reflects when Allergies were last updated in [employer]
Home Medications with original date entered in [employer]
Allergy/Medication List:
Allergies
Allergy/AdvReac Type Severity Reaction Status Date / Time
No Known Allergies Allergy Verified 04/06/25 22:11
Home Medications
clonazepam 0.5 mg tablet 0.5 mg PO BID Mental Health/Anxiety 10/08/20
zolpidem 10 mg tablet 10 mg PO HS sleep 10/08/20
meclizine 25 mg tablet 25 mg PO [id number] PRN dizziness 09/03/22
mirtazapine 45 mg tablet 45 mg PO HS Mental Health/Anxiety 09/03/22
ofatumumab 20 mg/0.4 mL subcutaneous pen injector (Kesimpta Pen) 20 mg SC QMONTH MS 09/03/22
ondansetron 4 mg disintegrating tablet 4 mg PO Q8HPRN PRN nausea/vomiting with headaches 09/03/22
perphenazine 16 mg tablet 16 mg PO HS Sleep 09/03/22
hydroxyzine pamoate 25 mg capsule 25 mg PO BIDPRN PRN anxiety 08/15/24
prazosin 5 mg capsule 5 mg PO HS 08/15/24
pregabalin 75 mg capsule 75 mg PO TID Pain 08/15/24
rizatriptan 10 mg disintegrating tablet 10 mg PO DAILYPRN PRN headache 08/15/24
duloxetine 60 mg capsule,delayed release 60 mg PO DAILY 04/07/25
Review of Systems
-
Constitutional: Reports No Symptoms
EENT: Reports No Symptoms
Respiratory: Reports No Symptoms
Cardiac: Reports No Symptoms
Abdomen/GI: Reports No Symptoms
: Reports No Symptoms
Musculoskeletal: Reports No Symptoms
Neurological: Reports See HPI
Psych: Reports See HPI
Physical Exam
Vital Signs
Vital Signs
Temp Pulse Resp BP Pulse Ox
98.6 F 58 20 130/69 99
04/07/25 08:36 04/07/25 09:00 04/07/25 08:36 04/07/25 09:00 04/07/25 09:00
Physical Exam
General: Well Developed, Well Nourished and No Apparent Distress
HEENT: NormoCephalic, Moist mucous membranes and Atraumatic
Respiratory: Clear
Cardiac: S1/S2 and Regular Rhythm; No Murmur or Rub
GI: Soft, Non Tender, Non Distended and Normal Bowel Sounds; No Organomegaly
Rectal: Deferred by Provider
Musculoskeletal: No Clubbing, No Cyanosis and No Edema
Skin: No Rash
Neuro: Other (Left lower extremity weakness with hypersensitivity)
Psych: Anxious
Laboratory Results
-
04/06/25 20:54
04/06/25 20:54
Laboratory Results
Total Bilirubin 0.6 mg/dl (0.2-1.3) 04/06/25 20:54
AST 75 U/L (14-36) H 04/06/25 20:54
ALT 48 U/L (0-35) H 04/06/25 20:54
Alkaline Phosphatase 151 U/L (38-126) H 04/06/25 20:54
Impression/Plan
-
IMPRESSION:
Alcohol use disorder with concern for alcohol withdrawal.
Concern for MS flare
Chronic pain
Former IVDA heroin
Essential hypertension
PLAN:
Severe alcohol use disorder with concern for alcohol withdrawal.
Alcohol level 288 upon presentation with patient being tremulous and anxious.
Start alcohol withdrawal protocol.
MSAS with benzodiazepines
IV phenobarbital
IV thiamine
Former IVDA. Claims to be clean for over 3 years
Urine drug screen negative
Mildly elevated LFT/transaminases in a pattern of alcohol hepatic injury
Mild normal anion gap metabolic acidosis bicarb 18 upon presentation.
Continue IV hydration
Follow CMP
MS with concern for flare.
Maintained on Kesimpta
Presents with diffuse mostly left-sided left lower extremity pain and weakness.
Neurology evaluation
Obtain medical records
CT scan of the head
May require further imaging with MRI
Continue preadmission regimen including clonazepam 0.5 mg twice daily, mirtazapine 45 mg at bedtime, perphenazine 60 mg at bedtime pregabalin 75 mg 3 times daily hold zolpidem while on phenobarbital and MSAS protocol.
Essential hypertension
Continue prazosin
--- NOTE | 2025-04-07 10:40 | EDRN ---
the pt pressed the call hoang and this RN entered the pts room, the pt stated that she wanted her blankets fluffed, this RN fixed the pts blankets per the pts request and also repositioned the pts pillow per the pts request, will continue to monitor
the pt closely
[2025-04-07] MEDS: PHENOBARBITAL 104 MG IV (11:38)
[2025-04-07] MEDS: NSS 1000 IV (11:43)
--- NOTE | 2025-04-07 12:30 | CM ---
CM reviewed chart and met with patient bedside in ED. Lives with her and MIL in 1 story home, no KELLY.
Independent in ADLs, personal care and ambulation at baseline. Ambulates with cane at baseline.
Confirms prescription coverage, has MS and is due for Kesimpta injection on 04/19.
No hx VN/SNF
PCP: Lea Alegre
Pharmacy: [facility] [address]
CM will continue to follow for any discharge planning needs.
[2025-04-07] MEDS: VITAMIN B1 100 MG PO (12:57)
[2025-04-07] MEDS: CYMBALTA DELAYED RELEASE 60 MG PO (12:57)
--- NOTE | 2025-04-07 13:30 | EDRN ---
this RN saw a crisis consult that was placed last night 04/06/2025, this RN followed up with crisis to confirm that they saw the patient and per crisis they saw the patient and they signed off on the patient, per crisis the patient declined [facility]
and mental health help
--- NOTE | 2025-04-07 13:35 | EDRN ---
records from [facility] have been requested
--- NOTE | 2025-04-07 13:49 | EDRN ---
the patients lunch tray arrived and this RN brought it to the patient
--- NOTE | 2025-04-07 14:00 | EDRN ---
the pt pressed the call hoang and this RN entered the pts room, the pt stated that she wanted her light turned on and her food warmed, this RN turned on the pts light and heated up the pts food via microwave per the pts request, will continue to
monitor the pt closely
--- NOTE | 2025-04-07 14:30 | EDRN ---
the pt pressed the call hoang and this RN entered the pts room, this RN found the pt sticking her finger down her throat, this RN asked what the pt was doing and the pt stated, 'I am trying to throw up so you'll give me diazepam', this RN explained
to the pt that this RN could ask the provider for compazine due to it being too soon to take zofran if she was nauseous, and the pt stated, 'No i want diazepam, i just want to be medicated', this RN noticed that the pts HR was 65, RR 16, Temp 98.6,
the pt had no signs of tremors that were visible to this RN, this RN notified Dr. Bennett who stated per MSAS score it was not appropriate to give diazepam to the pt, this information was relayed to the pt, will continue to monitor the pt closely
[2025-04-07] MEDS: ATARAX 25 MG PO (14:51)
--- NOTE | 2025-04-07 15:33 | EDRN ---
the pt pressed the call ball and this RN entered the pts room, the pt stated, 'I am really sorry but i need to leave, i want to sign out AMA, i just can't do this anymore, i am just so upset about the lack of care last night and you guys have been
great during the day and i really appreciate you, you have been wonderful to me, i just am so upset and i'm surprised that i stayed here this long to be honest, i just can't do this, i'm not ready to detox, please take my iv out and let me sign an
AMA form', this RN asked if there was anything that this RN could do to help her with her stay and the pt stated, 'No i just need to leave, i'm so sorry, and i know that this is wrong, but i really need to get out of here', the patient denies SI/HI,
the pt stated that she was going to call her brother to have him call an uber to pick her up, the patient called her brother at [phone] via hospital phone and the pts brother stated that he would get her an uber, this RN confirmed with the pts
brother, Dr. Benntet was notified by this RN that the pt wanted to leave AMA and this RN provided the provider with AMA form, this RN entered the pts room with Dr. Bennett who discussed the risks of leaving the hospital AMA, the pt verbally stated
that she understood, Dr. Bennett asked if there was anything that would help her to stay in the hospital and the pt declined, PIV was discontinued and pressure dressing was applied, the pt got dressed on her own and this RN brought the pt out of
the ER via stretcher per the pts request, the pt is waiting out front of ER for her uber that her brother called, security at front of ER made aware
== END 2025-04-07 15:50 | disposition left against medical advice (07) | DRG 894 ==
LOC: ED 11:10
PROVIDERS: ADMITTING PHYSICIAN Internal Medicine; CONSULT PHYSICIAN Psychiatry & Neurology Neurology; EMERGENCY PHYSICIAN Student in an Organized Health Care Education/Training Program; FAMILY PHYSICIAN Nurse Practitioner Family
DX: F10.239 Alcohol dependence with withdrawal, unspecified (principal); Z53.29 Procedure and treatment not carried out because of patient's decision for other reasons; E87.20 Acidosis, unspecified; Z68.41 Body mass index [BMI] 40.0-44.9, adult; F10.229 Alcohol dependence with intoxication, unspecified; G35 Multiple sclerosis; F11.21 Opioid dependence, in remission; E66.9 Obesity, unspecified; I10 Essential (primary) hypertension; F17.290 Nicotine dependence, other tobacco product, uncomplicated; F20.9 Schizophrenia, unspecified; F32.A Depression, unspecified; F41.1 Generalized anxiety disorder; F43.10 Post-traumatic stress disorder, unspecified; G89.29 Other chronic pain; Y90.8 Blood alcohol level of 240 mg/100 ml or more; Z63.5 Disruption of family by separation and divorce; Z56.0 Unemployment, unspecified; Z63.8 Other specified problems related to primary support group
CPT/HCPCS: 70450; 80053; 80306; 81003; 81015; 82077; 84703; 85025